=== PATIENT | female | born 1960 | race Two or more races ===

== ENCOUNTER → 2025-06-08 | Outpatient (CLI) | payer OTHER, SELFPAY ==
--- NOTE | 2025-06-08 12:51 | XR_ITS ---
Examination: CT left foot, without contrast. 2-D sagittal reconstructions. 2-D coronal reconstructions. 3-D reconstructions. Date and time of exam: June 08, 2025, 1705 hours INDICATIONS: Acute left foot pain medial side beginning 3 weeks ago CTDI: vol (mGy): 4.24 DLP: (mGycm): 99.7 Technique: Multiple 1.25 mm axial sections of the left foot without intravenous contrast have been obtained. 2-D sagittal and coronal reconstructions have been obtained. 3-D reconstructions have been obtained. Low dose protocols were performed. One or more of the following dose reduction techniques were used; automated exposure control, adjustment of the mA and/or KV according to patient size, use of iterative reconstruction technique. Findings: Distal tibia and distal fibula intact Talus navicular cuboid and cuneiforms intact No Lisfranc tarsometatarsal dislocations No erosive or other significant arthritic change No foreign bodies IMPRESSION: No fractures No erosive or other significant arthritic change If foot pain persists, consider MRI foot without contrast follow-up
== END | disposition home or self-care (01) ==
DX: M79.672 Pain in left foot (principal)
CPT/HCPCS: 73700